=== PATIENT | female | born 1970 | race Native Hawaiian/Other Pacific Islander ===

== ENCOUNTER 2018-01-06 09:07 | Outpatient (CLI) | payer OTHER | END 2018-01-06 19:14 | disposition home or self-care (01) | LOC: MAMMO 09:07 | DX: Z12.31 Encounter for screening mammogram for malignant neoplasm of breast (principal) ==

== ENCOUNTER 2018-12-14 14:43 | Outpatient (CLI) | payer OTHER | END 2018-12-14 23:21 | disposition home or self-care (01) | LOC: LABW 14:43 | DX: D50.9 Iron deficiency anemia, unspecified (principal) | CPT/HCPCS: 36415; 82607; 83540; 83550; 85014; 85018 ==

== ENCOUNTER 2019-01-16 09:46 | Outpatient (CLI) | payer OTHER | END 2019-01-16 19:35 | disposition home or self-care (01) | LOC: MAMMO 09:46 | DX: Z12.31 Encounter for screening mammogram for malignant neoplasm of breast (principal) ==